=== PATIENT | female | born 1985 | race Two or more races ===

== ENCOUNTER 2017-05-13 23:58 | Inpatient (IN) | payer OTHER ==
[~2017-05-13] VITALS: Ht 157.5 cm; Wt 73.0 kg
[2017-05-14] MEDS ORDERED: SYNTHROID88 MCG PO (00:03)
[2017-05-14] MEDS ORDERED: PRENATAL TABLE1 EAC1 PO (00:04)
== END 2017-05-15 17:36 | DRG 775 ==
LOC: LDR 23:58 → OB/GYN 23:58
PROC: 10E0XZZ Delivery of Products of Conception, External Approach (ICD-10-PCS; principal; 2017-05-14)
PROC: 0UQMXZZ Repair Vulva, External Approach (ICD-10-PCS; 2017-05-14)
PROC: 4A1HXCZ Monitoring of Products of Conception, Cardiac Rate, External Approach (ICD-10-PCS; 2017-05-14)
DX: O71.82 Other specified trauma to perineum and vulva (principal); O69.81X0 Labor and delivery complicated by cord around neck, without compression, not applicable or unspecified; Z3A.37 37 weeks gestation of pregnancy; Z37.0 Single live birth